=== PATIENT | male | born 1995 | race Caucasian/White ===

== ENCOUNTER 2024-06-04 15:15 | Emergency (ER) | payer BC, OTHER ==
[2024-06-04] MEDS: Lidocaine 1% 5 ML VIAL INJECT ONE (15:44)
[2024-06-04] MEDS: Lidocaine 1% 5 ML VIAL ONE (15:58)
== END 2024-06-04 16:32 | disposition home or self-care (01) ==
LOC: KA.ED 15:15
DX: S67.22XA Crushing injury of left hand, initial encounter (principal); S62.637B Displaced fracture of distal phalanx of left little finger, initial encounter for open fracture; Z88.0 Allergy status to penicillin; W23.1XXA Caught, crushed, jammed, or pinched between stationary objects, initial encounter
CPT/HCPCS: 12001; 73140-F4; 99283; J3490